=== PATIENT | male | born 1990 | race Caucasian/White ===

== ENCOUNTER 2019-03-14 10:29 | Emergency (ER) | payer MEDICAID ==
[2019-03-14 13:19] LABS: ADD MAN DIFF? NO
[2019-03-14 13:23] LABS: BASOPHILS % 0.4 % (0.0-2.0); EOSINOPHILS # 0.2 10^3/ul (0.0-0.5); EOSINOPHILS % 2.4 % (0.0-7.0); HEMATOCRIT 50.9 % (42.0-52.0); HEMOGLOBIN 17.1 g/dl (14.0-18.0); LYMPHOCYTES # 1.8 10^3/ul (0.8-2.9); LYMPHOCYTES % 23.5 % (15.0-51.0); MEAN CORPUSCULAR HEMOGLOBIN 31.1 pg (29.0-33.0); MEAN CORPUSCULAR HGB CONC 33.6 g/dl (32.0-37.0); MEAN CORPUSCULAR VOLUME 92.7 fl (82.0-101.0); MEAN PLATELET VOLUME 9.1 fl (7.4-10.4); MONOCYTE # 0.4 10^3/ul (0.3-0.9); MONOCYTES % 4.7 % (0.0-11.0); NEUTROPHIL # 5.4 10^3/ul (1.6-7.5); NEUTROPHILS % 68.9 % (39.0-77.0); PLATELET COUNT 246 10^3/UL (140-415); RED BLOOD COUNT 5.49 10^6/ul (4.70-6.10); RED CELL DISTRIBUTION WIDTH 12.1 % (11.5-14.5)
[2019-03-14 13:23] LABS: WHITE BLOOD COUNT 7.8 10^3/ul (4.8-10.8)
[2019-03-14] MEDS: LIDOCAINE/MYLANTA 40 ML BTL PO (13:25)
[2019-03-14] MEDS: DICYCLOMINE 10 MG CAP PO (13:25)
[2019-03-14 13:27] LABS: UR MUCUS FEW /HPF (NONE SEEN); UR RBC 1 /HPF (0-5); UR WBC 0 /HPF (0-5)
[2019-03-14 13:28] LABS: ADD UMIC NO; UR ASCORBIC ACID NEGATIVE (NEGATIVE); UR BILIRUBIN (Dip) NEGATIVE (NEGATIVE); UR BLOOD (Dip) NEGATIVE (NEGATIVE); UR CLARITY CLEAR (CLEAR); UR COLOR YELLOW (YELLOW); UR GLUCOSE (Dip) NEGATIVE (NEGATIVE); UR KETONES (Dip) TRACE mg/dL (NEGATIVE); UR LEUKOCYTE ESTERASE (Dip) NEGATIVE Leu/ul (NEGATIVE); UR NITRITE (Dip) NEGATIVE (NEGATIVE); UR SPECIFIC GRAVITY (Dip) 1.018 (1.003-1.030); UR TOTAL PROTEIN (Dip) NEGATIVE (NEGATIVE); UR UROBILINOGEN (Dip) NEGATIVE (NEGATIVE)
[2019-03-14 13:43] LABS: ALANINE AMINOTRANSFERASE 23 IU/L (13-69); ALBUMIN 5.2 g/dl (3.3-4.9); ALBUMIN/GLOBULIN RATIO 1.44; ALKALINE PHOSPHATASE 87 IU/L (42-121); ANION GAP 9 (5-13); ASPARTATE AMINO TRANSFERASE 22 IU/L (15-46); BILIRUBIN,INDIRECT 1.1 mg/dl (0-1.1); BILIRUBIN,TOTAL 1.1 mg/dl (0.2-1.3); BLOOD UREA NITROGEN 19 mg/dl (7-20); CALCIUM 10.5 mg/dl (8.4-10.2); CARBON DIOXIDE 33 mmol/L (21-31); CHLORIDE 98 mmol/L (97-110); CREATININE 1.75 mg/dl (0.61-1.24); Estimated GFR 46 mL/min (>60); GLUCOSE 104 mg/dl (70-220); LIPASE 135 U/L (23-300); POTASSIUM 3.8 mmol/L (3.5-5.1); SODIUM 140 mmol/L (135-144); TOTAL PROTEIN 8.8 g/dl (6.1-8.1)
[2019-03-14] MEDS: SOD CHLORIDE 0.9% 1,000 ML IV (14:02)
[2019-03-14 14:17] LABS: CREATINE KINASE 110 IU/L (23-200)
== END 2019-03-14 17:27 | disposition home or self-care (01) ==
LOC: FTE 17:27
DX: K21.9 Gastro-esophageal reflux disease without esophagitis (principal); R51 Headache; R42 Dizziness and giddiness
CPT/HCPCS: 74176; 80053; 81003; 82550; 83690; 85025; 96360; 99285-25